=== PATIENT | female | born 1980 | race Caucasian/White ===

== ENCOUNTER 2017-06-01 21:38 | Emergency (ER) | payer BC, OTHER ==
[2017-06-01] MEDS ORDERED: Aspirin 81 MG Tab.Chew PO STA (22:46)
[2017-06-01] MEDS ORDERED: Metoprolol Tartrate 5 MG/5 ML SDV IVPUSH ONE (22:47)
--- NOTE | 2017-06-01 22:47 | EDM.PDOC ---
ED HPI GENERAL MEDICAL PROBLEM - General Chief Complaint: Chest Pain Stated Complaint: CHEST PAIN Time Seen by Provider: 06/01/17 21:45 Source of Information: Reports: Patient, Family () History Limitations: Reports: No Limitations - History of Present Illness INITIAL COMMENTS - FREE TEXT/NARRATIVE: The patient states that she developed sudden onset jaw, anterior neck, and central chest tightness around 20:00 tonight, while sitting on her son's bed. She states that both of her arms hurt all the way to the wrists, and that she had tingling of all of her fingers. She felt diaphoretic. She denies having had nausea, dyspnea, or sense of impending doom. No abdominal pain or the feeling of weak legs. The sensation was not modifiable. She states that the sensation resolved after about 5, perhaps 10 minutes, and since then she has been feeling an achiness in her chest, back, and neck. She feels generally tired. No prior similar symptoms. The patient does not have a PCP. 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 [No Known Home Meds] 06/01/17 [History] Past Medical History - Past Surgical History HEENT Surgical History: Reports: Oral Surgery ([place] teeth extraction) Female Surgical History: Reports: Section (x 1) Social & Family History - Tobacco Use Smoking Status *Q: Never Smoker Second Hand Smoke Exposure: No - Alcohol Use Alcohol Use History: Yes Alcohol Use Frequency: Socially - Recreational Drug Use Recreational Drug Use: No - Living Situation & Occupation Living situation: Reports: , with Spouse, with Family (3 kids) Occupation: Employed ([employer]) ED ROS GENERAL - Review of Systems Review Of Systems: ROS reveals no pertinent complaints other than HPI. ED EXAM, GENERAL - Physical Exam Exam: See Below Exam Limited By: No Limitations General Appearance: Alert, WD/WN, No Apparent Distress Eye Exam: Bilateral Eye: Normal Inspection Ears: Normal External Exam, Hearing Grossly Normal Nose: Normal Inspection, No Blood Throat/Mouth: Normal Inspection, Normal Lips, Normal Voice, No Airway Compromise Head: Atraumatic, Normocephalic Neck: Normal Inspection, Full Range of Motion Respiratory/Chest: No Respiratory Distress, Lungs Clear, Normal Breath Sounds, No Accessory Muscle Use, Chest Non-Tender Cardiovascular: Normal Peripheral Pulses, Regular Rate, Rhythm, No Gallop, No JVD, No Murmur, No Rub Peripheral Pulses: 4+: Radial (L), Radial (R) GI/Abdominal: Normal Bowel Sounds, Soft, Non-Tender, No Organomegaly, No Distention, No Abnormal Bruit, No Mass (Female) Exam: Deferred Rectal (Female) Exam: Deferred Back Exam: Normal Inspection, Full Range of Motion, NT Extremities: Normal Inspection, Normal Range of Motion, No Pedal Edema, Normal Capillary Refill Neurological: Alert, Oriented, Normal Cognition, No Motor/Sensory Deficits Psychiatric: Normal Affect Skin Exam: Warm, Dry, Intact, Normal Color, No Rash EKG INTERPRETATION EKG Date: 06/01/17 Time: 21:46 Rhythm: NSR Rate (Beats/Min): 69 [place]: Normal P-Wave: Present QRS: Normal ST-T: Normal QT: Normal Comparison: NA - No Prior EKG Course - Vital Signs Last Recorded V/S: Last Vital Signs Temp 36.7 C 06/01/17 21:44 Pulse 72 06/01/17 22:59 Resp 15 06/01/17 21:44 BP 113/74 06/01/17 22:59 Pulse Ox 100 06/01/17 21:44 - Orders/Labs/Meds Orders: Active Orders 24 hr Category Date Time Status EKG Documentation Completion [RC] ROUTINE Care 06/01/17 21:45 Active Chest 2V [CR] Stat Exams 06/01/17 22:01 Taken HCG QUALITATIVE,URINE [URCHEM] Stat Lab 06/01/17 22:25 Received UA W/MICROSCOPIC [URIN] Stat Lab 06/01/17 22:25 Received Heparin Sodium/D5W [Heparin 25,000 Units in D5W 500 ML] Med 06/01/17 23:00 Active 25,000 units in 500 ml IV TITRATE Sodium Chloride 0.9% @ 100 MLS/HR(1000ml Bag) Med 06/01/17 23:30 Ordered Sodium Chloride 0.9% [Normal Saline] 1,000 ml IV ASDIRECTED Medication Orders Heparin Sodium/Dextrose (Heparin 25,000 Units In D5w 500 Ml) 25,000 units in 500 mls @ 12.519 mls/hr IV TITRATE ADRIEN; 12 UNITS/KG/HR PRN Reason: Protocol Last Admin: 06/01/17 22:56 Dose: 12.519 mls/hr Sodium Chloride (Normal Saline) 1,000 mls @ 100 mls/hr IV ASDIRECTED ADRIEN Labs: Laboratory Tests 06/01/17 06/01/17 06/01/17 Range/Units 21:45 21:45 21:45 WBC 5.41 (3.98-10.04) K/mm3 RBC 4.47 (3.98-5.22) M/mm3 Hgb 14.1 (11.2-15.7) gm/L Hct 42.5 (34.1-44.9) % MCV 95.1 H (79.4-94.8) fl MCH 31.5 (25.6-32.2) pg MCHC 33.2 (32.2-35.5) g/dl RDW Std Deviation 42.9 (36.4-46.3) fL Plt Count 202 (182-369) K/mm3 MPV 10.9 (9.4-12.3) fl Neutrophils % (Manual) 43 (40-60) % Band Neutrophils % 0 (0-10) % Lymphocytes % (Manual) 38 (20-40) % Atypical Lymphs % 1 % Monocytes % (Manual) 12 H (2-10) % Eosinophils % (Manual) 5 (0.7-5.8) % Basophils % (Manual) 1 (0.1-1.2) Platelet Estimate Adequate Plt Morphology Comment Normal RBC Morph Comment Normal PT 10.1 (8.0-13.0) SECONDS INR 0.93 APTT 28 (22-36) SECONDS D-Dimer, Quantitative 0.35 (0.19-0.59) mg/L Puncture Site ABG pH (7.35-7.45) ABG pCO2 (35.0-45.0) mmHg ABG pO2 (80.0-100.0) mmHg ABG HCO3 (22.0-26.0) meq/L ABG O2 Saturation (96.0-97.0) % ABG Base Excess (-2-2.0) Ayo Test O2 Delivery Device Oxygen Flow Rate FiO2 (21.00-100.00) % Sodium 141 (136-145) mEq/L Potassium 3.5 (3.5-5.1) mEq/L Chloride 106 (98-107) mEq/L Carbon Dioxide 25 (21-32) mEq/L Anion Gap 13.5 (5-15) BUN 15 (7-18) mg/dL Creatinine 0.8 (0.55-1.02) mg/dL Est Cr Clr Drug Dosing 74.06 mL/min Estimated GFR (MDRD) > 60 (>60) mL/min BUN/Creatinine Ratio 18.8 H (14-18) Glucose 114 H (74-106) mg/dL Calcium 9.2 (8.5-10.1) mg/dL Magnesium 2.0 (1.8-2.4) mg/dl Total Bilirubin 0.3 (0.2-1.0) mg/dL AST 16 (15-37) U/L ALT 23 (14-59) U/L Alkaline Phosphatase 43 L (46-116) U/L Troponin I 0.260 H* (0.00-0.056) ng/mL Total Protein 8.1 (6.4-8.2) g/dl Albumin 4.2 (3.4-5.0) g/dl Globulin 3.9 gm/dL Albumin/Globulin Ratio 1.1 (1-2) TSH 3rd Generation 2.996 (0.358-3.74) uIU/mL 06/01/17 Range/Units 22:23 WBC (3.98-10.04) K/mm3 RBC (3.98-5.22) M/mm3 Hgb (11.2-15.7) gm/L Hct (34.1-44.9) % MCV (79.4-94.8) fl MCH (25.6-32.2) pg MCHC (32.2-35.5) g/dl RDW Std Deviation (36.4-46.3) fL Plt Count (182-369) K/mm3 MPV (9.4-12.3) fl Neutrophils % (Manual) (40-60) % Band Neutrophils % (0-10) % Lymphocytes % (Manual) (20-40) % Atypical Lymphs % % Monocytes % (Manual) (2-10) % Eosinophils % (Manual) (0.7-5.8) % Basophils % (Manual) (0.1-1.2) Platelet Estimate Plt Morphology Comment RBC Morph Comment PT (8.0-13.0) SECONDS INR APTT (22-36) SECONDS D-Dimer, Quantitative (0.19-0.59) mg/L Puncture Site Lt radial ABG pH 7.39 (7.35-7.45) ABG pCO2 38.9 (35.0-45.0) mmHg ABG pO2 89.0 (80.0-100.0) mmHg ABG HCO3 22.9 (22.0-26.0) meq/L ABG O2 Saturation 97.7 H (96.0-97.0) % ABG Base Excess -1.4 (-2-2.0) Ayo Test Positive O2 Delivery Device Room air Oxygen Flow Rate 0.0 FiO2 21.00 (21.00-100.00) % Sodium (136-145) mEq/L Potassium (3.5-5.1) mEq/L Chloride (98-107) mEq/L Carbon Dioxide (21-32) mEq/L Anion Gap (5-15) BUN (7-18) mg/dL Creatinine (0.55-1.02) mg/dL Est Cr Clr Drug Dosing mL/min Estimated GFR (MDRD) (>60) mL/min BUN/Creatinine Ratio (14-18) Glucose (74-106) mg/dL Calcium (8.5-10.1) mg/dL Magnesium (1.8-2.4) mg/dl Total Bilirubin (0.2-1.0) mg/dL AST (15-37) U/L ALT (14-59) U/L Alkaline Phosphatase (46-116) U/L Troponin I (0.00-0.056) ng/mL Total Protein (6.4-8.2) g/dl Albumin (3.4-5.0) g/dl Globulin gm/dL Albumin/Globulin Ratio (1-2) TSH 3rd Generation (0.358-3.74) uIU/mL Meds: Medications Generic Name Dose Route Start Last Admin Trade Name Freq PRN Reason Stop Dose Admin Heparin Sodium/Dextrose 25,000 units in 500 mls @ 12.519 mls/hr 06/01/17 23: 00 06/01/17 22:56 Heparin 25,000 Units In D5w 500 Ml IV 12.519 mls/hr TITRATE ADRIEN Administration Protocol 12 UNITS/KG/HR Sodium Chloride 1,000 mls @ 100 mls/hr 06/01/17 23:30 Normal Saline IV ASDIRECTED ADRIEN Discontinued Medications Generic Name Dose Route Start Last Admin Trade Name Marek PRN Reason Stop Dose Admin Aspirin 324 mg 06/01/17 22:46 Aspirin PO 06/01/17 22:47 ONETIME STA Metoprolol Tartrate 5 mg 06/01/17 22:47 06/01/17 22:59 Lopressor IVPUSH 06/01/17 22:48 5 mg ONETIME ONE Administration - Re-Assessments/Exams Free Text/Narrative Re-Assessment/Exam: 06/01/17 22:39 Two-view chest radiograph appears to be grossly normal. Cardiac silhouette is within normal limits. No pulmonary vascular congestion. No pleural effusions. No focal infiltrate. No pneumothorax. Formal read per the Radiologist pending. 06/01/17 22:45 The patient's troponin has returned elevated at 0.260. Her renal function is normal. Her ECG is normal. I will start the patient on a heparin drip, give aspirin and Lopressor. 06/01/17 22:52 Notified that the patient took 8 baby aspirin prior to coming to the ED, therefore I have canceled the aspirin order. 06/01/17 23:[address] Fernandes, Metallurgy Teacher at [facility], at 22:56. He is concerned that the patient might have suffered a spontaneous coronary artery dissection. He agrees with the Lopressor and heparin drip. He recommends that we transfer the patient to their ED. 06/01/17 23:[address] Costello, Emergency Physician at [facility], at 23:05. He agrees with Dr. Fernandes that the patient's presentation could be due to a spontaneous coronary artery dissection, and he is also concerned about the possibility of an aortic dissection. The patient will require a CT angiogram, however, he recommends that we transfer the patient, and that they get the CT angiogram there, not here. We will transfer the patient by helicopter. 06/01/17 23:15 The above was discussed with the patient and her . At this time, the patient states that she feels "fine". She is agreeable to transfer to [facility]. 06/01/17 23:25 Notified that there is dense fog in [place], therefore the helicopter is not flying. Notified also that a fixed wing is not available at this time. The patient will have to go by ground. Departure - Departure Time of Disposition: 23:10 Disposition: DC/Tfer to Acute Hospital 02 Condition: Fair Clinical Impression: Chest pain, Elevated troponin - Discharge Information - My Orders Last 24 Hours: My Active Orders 06/01/17 21:45 EKG Documentation Completion [RC] ROUTINE 06/01/17 22:01 Chest 2V [CR] Stat 06/01/17 22:25 HCG QUALITATIVE,URINE [URCHEM] Stat UA W/MICROSCOPIC [URIN] Stat 06/01/17 23:00 Heparin Sodium/D5W [Heparin 25,000 Units in D5W 500 ML] 25,000 units in 500 ml IV TITRATE 06/01/17 23:30 Sodium Chloride 0.9% @ 100 MLS/HR(1000ml Bag) Sodium Chloride 0.9% [Normal Saline] 1,000 ml IV ASDIRECTED - Assessment/Plan Last 24 Hours: My Active Orders 06/01/17 21:45 EKG Documentation Completion [RC] ROUTINE 06/01/17 22:01 Chest 2V [CR] Stat 06/01/17 22:25 HCG QUALITATIVE,URINE [URCHEM] Stat UA W/MICROSCOPIC [URIN] Stat 06/01/17 23:00 Heparin Sodium/D5W [Heparin 25,000 Units in D5W 500 ML] 25,000 units in 500 ml IV TITRATE 06/01/17 23:30 Sodium Chloride 0.9% @ 100 MLS/HR(1000ml Bag) Sodium Chloride 0.9% [Normal Saline] 1,000 ml IV ASDIRECTED
[2017-06-01 23:00] VITALS: BP 113/74
[2017-06-01] MEDS ORDERED: Heparin Sodium/D5W 25,000 UNITS/500 ML BAG IV SCH (23:00)
[2017-06-01] MEDS ORDERED: Sodium Chloride 0.9% 1,000 ML IV SCH (23:30)
--- NOTE | 2017-06-02 09:30 | CR ---
Chest: Two views of the chest were obtained. Comparison: No prior chest x-ray. Heart size and mediastinum are normal. Lungs are clear. Slight scoliosis is noted within the spine. Impression: 1. Nothing acute is seen. Diagnostic code #2
== END 2017-06-01 23:52 ==
LOC: JD.ED 21:38
DX: R07.89 Other chest pain (principal); R79.89 Other specified abnormal findings of blood chemistry
CPT/HCPCS: 36415; 36600; 71046; 80053; 81001; 81025; 82803; 83735; 84443; 84484; 85025; 85379; 85610; 85730; 93005; 96365; 96375; 99285; J1644; J7040; 93010; J3490

== ENCOUNTER 2018-12-25 19:32 | Emergency (ER) | payer BC ==
[2018-12-25 19:41] VITALS: BP 130/85
[2018-12-25] MEDS ORDERED: Bupivacaine 0.5% 10 ML SDV INJECT ONE (19:52)
[2018-12-25] MEDS ORDERED: Lidocaine 1% 10 ML MDV INJECT ONE (19:52)
[2018-12-25] MEDS ORDERED: ceFAZolin 1 GM Vial IM ONE (21:12)
--- NOTE | 2018-12-25 21:26 | EDM.PDOC ---
ED HPI GENERAL MEDICAL PROBLEM - General Chief Complaint: Lower Extremity Injury/Pain Stated Complaint: HORSE STEEPED ON FOOT Time Seen by Provider: 12/25/18 19:50 Source of Information: Reports: Patient History Limitations: Reports: No Limitations - History of Present Illness INITIAL COMMENTS - FREE TEXT/NARRATIVE: 38-year-old female presents for evaluation and treatment and injury to the left foot. Patient reports this occurred around noon today. She's been under rodeo old and states that a hourse stepped on her foot. She has been expressing pain to the foot. But has been walking on it. She denies any and their injury. She states that she could not leave the rodeo. Once she was finally able to remove her boot she appreciated that her toenail was partially avulsed. States tetanus is up-to-date. Onset: Today, Sudden Location: Reports: Lower Extremity, Left Right Feet Pain Score (Numeric/FACES): 8 - Related Data Allergies Allergy/AdvReac Type Severity Reaction Status Date / Time No Known Allergies Allergy Verified 12/25/18 19:41 Home Meds: Home Meds Acetaminophen/HYDROcodone [Flint 325-5 MG] 1 tab PO Q4H PRN #10 tablet 12/25/18 [Rx] Cephalexin [Keflex] 500 mg PO BID #20 capsule 12/25/18 [Rx] Past Medical History - Past Health History Medical/Surgical History: Denies Medical/Surgical History - Past Surgical History HEENT Surgical History: Reports: Oral Surgery Female Surgical History: Reports: Section Social & Family History - Tobacco Use Smoking Status *Q: Never Smoker - Recreational Drug Use Recreational Drug Use: No - Living Situation & Occupation Living situation: Reports: , with Spouse, with Family (3 kids) Occupation: Employed ([employer]) Review of Systems - Review of Systems Review Of Systems: See Below Musculoskeletal: Reports: Foot Pain (left foor 1st and 2nd toes and distal metatarsals ) Skin: Reports: Bruising (dorsal distal left foot), Change in Hair/Nails (great toenail partially avulsed) Neurological: Denies: Numbness, Tingling ED EXAM, GENERAL - Physical Exam Exam: See Below Exam Limited By: No Limitations General Appearance: Alert, WD/WN, No Apparent Distress, Thin Respiratory/Chest: No Respiratory Distress Cardiovascular: Normal Peripheral Pulses, Regular Rate, Rhythm Peripheral Pulses: 2+: Posterior Tibial (L), Posterior Tibial (R), Dorsalis Pedis (L), Dorsalis Pedis (R) Extremities: Other (left great toenail partaially avulsed; bruising to the left great toe and second toe, corresponding swelling , bruising and swelling tothe dorsal 1st and 2nd metatarsals; toenail is partailly avulsed open wound, bleeding controled at this time) Neurological: Alert, Oriented, Normal Cognition Psychiatric: Normal Affect, Normal Mood Skin Exam: Warm, Dry, Normal Color, Ecchymosis, Wound/Incision ED TRAUMA EXTREMITY PROCEDURES - Laceration/Wound Repair Left Toe - Great Lac/Wound Length In cm: 2 Appearance: Subcutaneous, Irregular, Mildly Contaminated Distal NVT: Neuro & Vascular Intact, No Tendon Injury Anesthetic Type: Digital Local Anesthesia - Lidocaine (Xylocaine): 1% Plain Local Anesthesia - Bupivicaine (Marcaine): 0.5% Plain Local Anesthetic Volume: 4cc Exploration/Debridement/Repair: No Foreign Material Found Sterile Dressing Applied: Nurse Tetanus Status Addressed: Yes Complications: No Complication Description: copious irrigation wiht NS. Nail removed wiht ease after digital block. bandaged applied by nursing staff, wound not requiring sutures. Course - Vital Signs Last Recorded V/S: Last Vital Signs Temp 97.5 F 12/25/18 19:39 Pulse 77 12/25/18 19:39 Resp 16 12/25/18 19:39 BP 130/85 12/25/18 19:39 Pulse Ox 100 12/25/18 19:39 - Orders/Labs/Meds Meds: Medications Discontinued Medications Generic Name Dose Route Start Last Admin Trade Name Marek PRN Reason Stop Dose Admin Bupivacaine HCl 10 ml 12/25/18 19:52 12/25/18 20:07 Sensorcaine-Mpf 0.5% INJECT 12/25/18 19:53 10 ml ONETIME ONE Administration Cefazolin Sodium 1 gm 12/25/18 21:12 12/25/18 21:23 Ancef IM 12/25/18 21:13 1 gm ONETIME ONE Administration Lidocaine HCl 10 ml 12/25/18 19:52 12/25/18 20:07 Xylocaine 1% INJECT 12/25/18 19:53 10 ml ONETIME ONE Administration - Radiology Interpretation Free Text/Narrative:: X-ray of the left foot shows a fracture of the great toe and a fracture of the distal proximal phalanx. She also has fracture of the second toe, distal proximal phalanx. - Re-Assessments/Exams Free Text/Narrative Re-Assessment/Exam: 12/25/18 21:20 reviewed the xray results with the patient. Nail removed after digital block. patient tolerated well. Antibiotics given for open fracture. Wound does not require sutures. Patient;s tetanus is up to date. Will d/c with crutches, walking boot and antibiotics. Follow-up with orthopedics. Discharge instructions as documented. Departure - Departure Time of Disposition: 21:22 Disposition: Home, Self-Care 01 Condition: Fair Clinical Impression: Fracture, phalanx, foot, Nail avulsion of toe - Discharge Information *PRESCRIPTION DRUG MONITORING PROGRAM REVIEWED*: No *COPY OF PRESCRIPTION DRUG MONITORING REPORT IN PATIENT PETER: No Prescriptions: Acetaminophen/HYDROcodone [Flint 325-5 MG] 1 tab PO Q4H PRN #10 tablet PRN Reason: Pain Cephalexin [Keflex] 500 mg PO BID #20 capsule Instructions: Nail Avulsion, Toe Fracture, [id number] Referrals: PCP,None [Primary Care Provider] - Tae Ellington MD [Physician] - Forms: ED Department Discharge Additional Instructions: [id number] ibuprofen as needed for pain. Do not take more than 3200 mg of ibuprofen and 1 day. For pain not relieved by ibuprofen you may take Flint one tablet every 4-6 hours. Flint is habit-forming, take as few of these as needed to control your pain. Do not drive or operate machinery within 10 hours of taking Flint. Keflex 1 tab twice a day x 10 days. Follow-up with orthopedics this week. Recommend Dr. Ellington. Call [phone] to schedule with him. Please let them know you have an open fracture of your great toe. The walking boot on at all times. You may remove this to shower. You may remove the dressing to your toe to shower. Otherwise keep covered. Please return to the ER for symptoms change or worsen.
--- NOTE | 2018-12-26 06:07 | CR ---
Left foot: Four views of the left foot were obtained. Comparison: No previous foot exam. Fracture is identified within the distal aspect of the proximal phalanx of the 1st toe. This is mildly comminuted and shows articular extension. Alignment remains close to anatomic. Tuft fracture is noted within the distal phalanx of the left 1st toe. Soft tissue injury is seen within the distal 1st toe. Fracture is identified within the distal aspect of the proximal phalanx of the 2nd toe. No additional fracture or other bony abnormality is seen. Soft tissue swelling is present. Impression: 1. Fractures as described above with soft tissue injury and swelling. Diagnostic code #3
== END 2018-12-25 21:45 | disposition home or self-care (01) ==
LOC: JD.ED 19:32
DX: S92.422A Displaced fracture of distal phalanx of left great toe, initial encounter for closed fracture (principal); S92.512A Displaced fracture of proximal phalanx of left lesser toe(s), initial encounter for closed fracture; Z79.899 Other long term (current) drug therapy; W55.19XA Other contact with horse, initial encounter
CPT/HCPCS: 11730; 73630; 96372; 99283; J0690; J2001; J3490; 28192; 64450